=== PATIENT | female | born 1965 | race Caucasian/White ===

== ENCOUNTER 2021-02-03 22:58 | Emergency (ER) | payer OTHER ==
[~2021-02-03] VITALS: Ht 172.7 cm; Wt 65.0 kg
[2021-02-04] MEDS ORDERED: ONDANSETRON 2MG/ML, 2ML ONE ×2 (00:15→01:45)
[2021-02-04] MEDS ORDERED: LACTATED RINGERS 1,000 ML IV ONE ×2 (00:30→02:00)
[2021-02-04] MEDS ORDERED: SODIUM CHLORIDE FLUSH 10ML SYR IVF ONE (00:30)
[2021-02-04] MEDS ORDERED: ONDANSETRON 2MG/ML, 2ML IVPush ONE ×2 (00:30→02:30)
[2021-02-04 02:48] VITALS: BP 105/60
== END 2021-02-04 03:10 | disposition home or self-care (01) ==
LOC: ED 02-04 02:40
DX: R11.2 Nausea with vomiting, unspecified (principal); R53.1 Weakness; E86.0 Dehydration; F17.210 Nicotine dependence, cigarettes, uncomplicated
CPT/HCPCS: 93005; 96361; 96374; 96376; 99284; 99406; J2405; J7120